=== PATIENT | female | born 1985 | race Caucasian/White ===

== ENCOUNTER 2019-01-02 08:39 | Emergency (ER) | payer OTHER ==
[2019-01-02] MEDS: LIDOCAINE 1% (MPF) 5 ML VIAL INJ (10:26)
== END 2019-01-02 11:34 | disposition home or self-care (01) ==
LOC: FTE 08:39
DX: S61.217A Laceration without foreign body of left little finger without damage to nail, initial encounter (principal); W26.8XXA Contact with other sharp object(s), not elsewhere classified, initial encounter; Y92.9 Unspecified place or not applicable
CPT/HCPCS: 12002; 99282-25

== ENCOUNTER 2019-01-04 10:39 | Emergency (ER) | payer OTHER | END 2019-01-04 12:00 | disposition home or self-care (01) | LOC: FTE 10:39 | DX: Z48.01 Encounter for change or removal of surgical wound dressing (principal) | CPT/HCPCS: 99281; Z7502 ==